=== PATIENT | female | born 1970 | race Caucasian/White ===

== ENCOUNTER 2018-10-30 00:27 | Observation (INO) | payer BC ==
[~2018-10-30 00:27] MED LIST: ALPRAZolam 0.25 MG TABLET PO SCH
[2018-10-30 02:45] VITALS: BP 101/59
[2018-10-30] MEDS: HYDROcodone/APAP 5/325MG 1 TAB TABLET PO PRN ×2 (04:08→09:59)
[2018-10-30] MEDS ORDERED: BENA20TA4 PO (04:29)
[2018-10-30] MEDS ORDERED: ALPR0.254 PO (04:29)
[2018-10-30] MEDS ORDERED: PHEN37.5 PO (04:29)
[2018-10-30] MEDS ORDERED: [UNRECOGNIZED DRUG - CODE] PO (04:32)
[2018-10-30] MEDS ORDERED: HYDR-3135 PO (04:38)
[2018-10-30 07:29] VITALS: BP 127/58
[2018-10-30] MEDS ORDERED: AMPHETAMINE PO SCH (09:00)
[2018-10-30] MEDS ORDERED: DEXTROAMPHETAMINE PO SCH (09:00)
[2018-10-30] MEDS ORDERED: TRAM-48 PO (09:06)
[2018-10-30] MEDS ORDERED: IBUP-1007 PO (09:06)
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
[2018-10-30] MEDS ORDERED: HYDROcodone/APAP 10/325 1 TAB TABLET PO PRN (09:15)
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
[2018-10-30] MEDS ORDERED: ALPRAZolam 0.25 MG TABLET PO SCH (10:00)
[2018-10-30 11:00] VITALS: BP 128/66
--- NOTE | 2018-10-30 11:30 | NUR ---
Discharge Note: LACEY BUSTILLO [facility] Discharge instructions and discharge home medications reviewed with Patient and a copy given. All questions have been answered and understanding verbalized. Prescriptions given to patient. Pt also given resources for [facility] [place]. Pt did not feel the need to speak with social worker school at this time and requested to just be DC'd.
[2018-10-31] MEDS ORDERED: LISINOPRIL 20 MG TABLET PO SCH (09:00)
== END 2018-10-30 11:30 | disposition home or self-care (01) ==
LOC: 2 SOUTH 02:30 → UNDOADMIN 02:30 → 2 SOUTH 02:30 → UNDODISIN 11:30
PROVIDERS: ADMIT Internal Medicine; ATTEND Internal Medicine
DX: F10.129 Alcohol abuse with intoxication, unspecified (principal); I10 Essential (primary) hypertension; F90.9 Attention-deficit hyperactivity disorder, unspecified type; F41.9 Anxiety disorder, unspecified; M79.602 Pain in left arm; M79.601 Pain in right arm
CPT/HCPCS: G0378; G0379